=== PATIENT | female | born 1960 | race Caucasian/White ===

== ENCOUNTER 2019-06-12 16:47 | Inpatient (IN) | payer OTHER ==
[~2019-06-12] VITALS: Ht 157.5 cm; Wt 56.7 kg
[2019-06-12] MEDS ORDERED: LIB25 PO (17:00)
[2019-06-12] MEDS ORDERED: ALPR0.255 PO (17:00)
[2019-06-12] MEDS ORDERED: ONDA4 PO (17:00)
[2019-06-12 17:10] LABS: GLUCOSE,POINT OF CARE 196 MG/DL (70-110)
[2019-06-12] MEDS ORDERED: LORazepam 2 MG/ML VIAL IM ONE (17:15)
[2019-06-12] MEDS ORDERED: HALOPERIDOL LACTATE 5 MG/ML VIAL IM ONE (17:15)
[2019-06-12 18:00] LABS: BASOPHILS % (AUTO) 1.4 % (0.0-2.0); EOSINOPHILS % (AUTO) 0.1 % (1.0-6.0); HEMATOCRIT 40.3 % (36-46); LYMPHOCYTES # (AUTO) 1.4 K/uL (1.0-4.8); LYMPHOCYTES % (AUTO) 24.6 % (22.0-44.0); MEAN CORPUSCULAR HEMOGLOBIN 30.1 pg (26.0-34.0); MEAN CORPUSCULAR HGB CONC 32.2 G/dL (31.0-37.0); MEAN CORPUSCULAR VOLUME 93 fL (80-100); MONOCYTES # (AUTO) 0.3 K/uL (0.1-1.0); MONOCYTES % (AUTO) 4.5 % (2.0-9.0); NEUTROPHILS % (AUTO) 69.4 % (40.0-70.0); PLATELET COUNT (AUTO) 318 K/uL (150-450); RED BLOOD CELL COUNT(AUTO) 4.31 MIL/uL (4.00-5.20)
[2019-06-12 18:11] LABS: ANION GAP 20 mmol/L (8-16); CALCIUM, TOTAL 8.6 mg/dL (8.8-10.5); CARBON DIOXIDE 19 mmol/L (22-29); CHLORIDE 99 mmol/L (98-107); CREATININE 1.04 mg/dL (0.60-1.30); GLOMERULAR FILTR. RATE CALC 54 mL/min (>60); GLUCOSE,RANDOM 152 mg/dL (70-110); POTASSIUM 3.6 mmol/L (3.5-5.1); SODIUM SERUM 138 mmol/L (136-145); UREA NITROGEN, BLOOD 14 mg/dL (7-18)
[2019-06-12 18:17] LABS: ALANINE AMINOTRANSFERASE 67 U/L (12-78); ALBUMIN 3.9 g/dL (3.4-5.0); ALKALINE PHOSPHATASE 68 U/L (46-116); ASPARTATE AMINOTRANSFERASE 108 U/L (15-37); BILIRUBIN,TOTAL 0.3 mg/dL (0.1-1.0); TOTAL PROTEIN, SERUM 6.9 g/dL (6.4-8.2)
[2019-06-12 18:27] LABS: ACETAMINOPHEN < 2 mcg/mL (10-30)
[2019-06-12 19:13] LABS: SALICYLATE 2.2 mg/dL (2.8-20.0)
[2019-06-12 19:50] LABS: AMPHET/METH SCREEN,URINE NEGATIVE (NEGATIVE); BARBITURATE SCREEN, URINE NEGATIVE (NEGATIVE); BENZODIAZEPINES SCREEN,URINE POSITIVE (NEGATIVE); CANNABINOID SCREEN,URINE NEGATIVE (NEGATIVE); COCAINE SCREEN,URINE POSITIVE (NEGATIVE); METHADONE SCREEN, URINE NEGATIVE (NEGATIVE); OPIATE SCREEN,URINE POSITIVE (NEGATIVE)
[2019-06-12 19:51] LABS: PHENCYCLIDINE SCREEN,URINE NEGATIVE (NEGATIVE)
[2019-06-12 23:29] LABS: GLUCOSE,POINT OF CARE 64 MG/DL (70-110)
[2019-06-13] VITALS (8 sets, daily range): BP systolic 102–128; BP diastolic 60–79
[2019-06-13] MEDS ORDERED: CYANOCOBALAMIN 1,000 MCG/ML VIAL IM ONE (01:00)
[2019-06-13 02:40] LABS: GLUCOSE,POINT OF CARE 189 MG/DL (70-110)
[2019-06-13] MEDS ORDERED: ZOLPIDEM TARTRATE 10 MG TABLET PO PRN ×2 (02:45→03:30)
[2019-06-13] MEDS ORDERED: HALOPERIDOL 5 MG TABLET PO PRN ×2 (02:45→03:30)
[2019-06-13] MEDS: LORazepam 2 MG TABLET PO PRN ×5 (03:16→17:27)
[2019-06-13] MEDS: THIAMINE HCL 100 MG TABLET PO SCH ×2 (08:43→16:56)
[2019-06-13] MEDS ORDERED: THIAMINE HCL 100 MG TABLET PO SCH (09:00)
[2019-06-13] MEDS ORDERED: MULTIVITAMINS WITH MINERALS, THERAPEUTIC TABLET PO SCH ×2 (09:00)
[2019-06-13] MEDS ORDERED: FOLIC ACID 1 MG TABLET PO SCH ×2 (09:00)
[2019-06-13] MEDS ORDERED: SERTRALINE HCL 50 MG TABLET PO SCH (09:30)
[2019-06-13] MEDS ORDERED: BusPIRone HCL 10 MG TABLET PO SCH (09:30)
[2019-06-13] MEDS ORDERED: GuaiFENesin/D-METHORPHAN [SUGAR-FREE] 200-20MG/10 ML SYRUP UDCUP PO PRN (12:30)
[2019-06-13] MEDS ORDERED: CloNIDine HCL 0.1 MG TABLET PO PRN (12:30)
[2019-06-13] MEDS ORDERED: MAGNESIUM HYDROXIDE SUSPENSION 30 ML UDCUP PO PRN (12:30)
[2019-06-13] MEDS ORDERED: ONDANSETRON HCL 4 MG TABLET PO PRN (12:30)
[2019-06-13] MEDS ORDERED: NICOTINE 14 MG/24 HOUR PATCH TD PRN (12:30)
[2019-06-13] MEDS ORDERED: MAG HYDROX/AL HYDROX/SIMETH ES 30 ML SUSPENSION UDCUP PO PRN (12:30)
[2019-06-13] MEDS ORDERED: DOCUSATE SODIUM 100 MG CAPSULE PO PRN (12:30)
[2019-06-13] MEDS ORDERED: LOPERAMIDE HCL 2 MG CAPSULE PO PRN (12:30)
[2019-06-13] MEDS ORDERED: IBUPROFEN 400 MG TABLET PO PRN (12:30)
[2019-06-13] MEDS ORDERED: ACETAMINOPHEN 325 MG TABLET PO PRN (12:30)
[2019-06-13] MEDS ORDERED: BUSP10TA23 PO (16:53)
[2019-06-13] MEDS ORDERED: SERT50TA12 PO (16:53)
[2019-06-14] MEDS ORDERED: LORazepam 2 MG TABLET PO PRN (07:00)
[2019-06-14] MEDS ORDERED: LORazepam 2 MG TABLET PO SCH (09:00)
[2019-06-16] MEDS ORDERED: LORazepam 1 MG TABLET PO PRN (07:00)
[2019-06-16] MEDS ORDERED: LORazepam 1 MG TABLET PO SCH (09:00)
[2019-06-17] MEDS ORDERED: LORazepam 1 MG TABLET PO PRN (07:00)
== END 2019-06-13 18:45 | DRG 885 ==
LOC: EMS 16:51 → 3EC 06-13 02:04 → EMS 06-13 03:20
DX: F33.2 Major depressive disorder, recurrent severe without psychotic features (principal); K70.30 Alcoholic cirrhosis of liver without ascites; F14.10 Cocaine abuse, uncomplicated; E86.0 Dehydration; Z87.891 Personal history of nicotine dependence; Z72.89 Other problems related to lifestyle
CPT/HCPCS: 82948; 93005; 96372; G0480; G0481; J1630; J2060; J3420; Q0162